=== PATIENT | female | born 1970 | race Caucasian/White ===

== ENCOUNTER 2019-08-05 06:25 | Day surgery (SDC) | payer BC, OTHER ==
[~2019-08-05] VITALS: Ht 162.6 cm; Wt 68.0 kg
[~2019-08-05 06:25] MED LIST: ESTRACE0.5 MG PO; MOBIC15 MG PO; OMEPRAZOLE20 MG PO; [UNRECOGNIZED DRUG - OTHER] IM
[2019-08-05] MEDS ORDERED: TRAZODONE HCL50 MG PO (06:46)
--- NOTE | 2019-08-05 08:13 | NUR ---
08/05/19 0813 Jessica Younger 0807- PT TO PACU IN LL POSITION. EYES OPEN. NODS AND STATES YES/NO APPROPRIATELY. BREATHING EASY AND UNLABORED ON 2 L O2 VIA NC. SP02 >95%. DENIES PAIN OR NAUSEA. PT ENCOURAGED TO PASS GAS. 0813- PT CONTINUES TO DENY PAIN/NAUSEA. BREATHING EASY AND UNLABORED. SP02 >90% ON RA. AWAKENS EASILY TO VOICE, BUT REMAINS DROWSY.
--- NOTE | 2019-08-05 09:49 | OR ---
[facility] [address] [place], [place] [address] Signed DATE OF OPERATION: 08/05/2019 SURGEON: Reena Cochran MD PREOPERATIVE DIAGNOSIS: Colon screening. POSTOPERATIVE DIAGNOSIS: Normal colon to cecum except for internal hemorrhoids. PROCEDURE: Total colonoscopy to cecum. ANESTHESIA: Intravenous sedation, fentanyl 100 mcg, Versed 4.5 mg. INDICATION: This 49-year-old white woman is a patient of [facility]. She is here for a screening colonoscopy. She has no family history of colon cancer and no symptoms. FINDINGS: The prep was excellent. Complete colonoscopy was undertaken to the cecum without question. She had no sign of polyps, diverticular formation, colitis, or cancer. There were internal hemorrhoids. DESCRIPTION OF PROCEDURE: The patient was brought to the endoscopy suite and placed in lateral decubitus position, given intravenous sedation to the point of slurred speech and nystagmus. Digital rectal examination was normal. An Olympus video colonoscope was passed in the rectum and manipulated throughout the colon ultimately intubating the cecum itself. The ileocecal valve and appendiceal orifice were normal. Scope was withdrawn from that point and examination throughout showed no sign of abnormality; specifically, no polyps, diverticular formation, colitis, or cancer. Retroflexed view of the rectum confirmed internal hemorrhoids. The scope was removed and the patient was taken to recovery room in good condition. CONCLUDING DIAGNOSIS: Normal colon to cecum. Electronically Signed By: REENA COCHRAN MD 08/05/19 0949 PATIENT NAME: SHRUTHI FRENCH OPERATIVE REPORT DATE OF : 66 REPORT #: [id number] PHYSICIAN: REENA COCHRAN MD PCP: DAYANARA SCHUMACHER PA-C REPORT IS CONFIDENTIAL AND NOT TO BE RELEASED WITHOUT AUTHORIZATION [address] [place], [place] [address] Signed PLAN: Recommend repeat colonoscopy in 10 years sooner if clinically indicated. MD SHAHID Daniels/LIZZY /[id number] cc: DALTON Aponte Copies: DAYANNA JONES ~ Electronically Signed By: REENA COCHRAN MD 08/05/19 0949 PATIENT NAME: SHRUTHI FRENCH OPERATIVE REPORT DATE OF : 66 REPORT #: [id number] PHYSICIAN: REENA COCHRAN MD PCP: DAYANARA SCHUMACHER PA-C REPORT IS CONFIDENTIAL AND NOT TO BE RELEASED WITHOUT AUTHORIZATION
== END 2019-08-05 08:50 | disposition home or self-care (01) ==
LOC: DS 06:25 → OPS 06:25
PROVIDERS: Surgery
PROC: 0DJD8ZZ Inspection of Lower Intestinal Tract, Via Natural or Artificial Opening Endoscopic (ICD-10-PCS; principal; 2019-08-05 06:45)
DX: Z12.11 Encounter for screening for malignant neoplasm of colon (principal); K64.8 Other hemorrhoids; F17.210 Nicotine dependence, cigarettes, uncomplicated; J45.909 Unspecified asthma, uncomplicated; K21.0 Gastro-esophageal reflux disease with esophagitis; J68.3 Other acute and subacute respiratory conditions due to chemicals, gases, fumes and vapors; Z91.048 Other nonmedicinal substance allergy status; Z88.0 Allergy status to penicillin; Z91.040 Latex allergy status; Z79.899 Other long term (current) drug therapy; Z91.013 Allergy to seafood
CPT/HCPCS: 99153; G0500; J2250; J3010; J7121

== ENCOUNTER 2020-06-26 05:52 | Day surgery (SDC) | payer BC, OTHER ==
[~2020-06-26] VITALS: Ht 162.6 cm; Wt 72.7 kg
[~2020-06-26 05:52] MED LIST changes: +BLACK COHOSH40 M1 PO; +SUDOGEST30 MG PO; +TRAZODONE HCL50 MG PO; +VENTOLIN HFA18 GM INH
[2020-06-26] MEDS ORDERED: NORCO 5-325 TA1 EACH PO (10:19)
[2020-06-26] MEDS ORDERED: IBUPROFEN800 MG PO (10:20)
--- NOTE | 2020-06-26 12:41 | OR ---
[address] [address] Signed DATE OF OPERATION: 06/26/2020 SURGEON: Dion Renteria MD PREOPERATIVE DIAGNOSIS: Rectocele. POSTOPERATIVE DIAGNOSIS: Rectocele. PROCEDURE: Posterior repair. TELEMEDICINE PHYSICIAN: Dr. Whitman. ANESTHESIA: General. ESTIMATED BLOOD LOSS: 50 mL. SPECIMEN: None. DRAINS: Gibson to bladder. PACKING: None. FINDINGS: A lax introitus with a grade 2-3 rectocele, there was grade 1 cystocele. Normal cervix and uterus without descent. No lesions or masses noted. COMPLICATIONS: None. DESCRIPTION OF PROCEDURE: The patient was brought to the operating room, placed in supine position. After Electronically Signed By: DION RENTERIA MD 06/26/20 1241 PATIENT NAME: SHRUTHI FRENCH OPERATIVE REPORT DATE OF : 66 REPORT #: [id number] PHYSICIAN: DION RENTERIA MD PCP: AALIYAH BERRY PA-C REPORT IS CONFIDENTIAL AND NOT TO BE RELEASED WITHOUT AUTHORIZATION [address] [address] Signed adequate general anesthesia was obtained, she was placed in the dorsal lithotomy position, prepped and draped in usual sterile fashion. Digital rectal exam was done and the distal portion of the rectocele was identified and a Paulino clamp used to grasp the vaginal mucosa at distal portion in the midline of the vagina, grasping just the vaginal mucosa. Allis clamps were used to grasp either side of the introitus and a triangular shaped piece of perineal skin removed using a scalpel, the base being the introitus between the two Allis clamps in the apex 2/[address] in the midline toward the rectum. The vaginal mucosa was then undermined using Metzenbaum scissors and cut along the midline towards the previously placed clamp. The edges of the vaginal mucosa were grasped with Allis clamps on either side as the dissection was carried out. The vaginal mucosa was then bluntly and sharply from the perirectal tissue using open gauze and Metzenbaum scissors dissecting the perirectal tissue away from the underside of the vaginal mucosa. With both sides of the rectocele identified and from the vaginal mucosa, interrupted horizontal mattress stitches of 0 Vicryl suture were placed starting at the distal and proceeding towards the introitus. These stitches were closed, thickening perirectal tissue in the midline. After these stitches were placed, a digital rectal exam was done. There was still small area of rectocele towards the proximal end, this was reinforced with two additional horizontal mattress stitches of 0 Vicryl suture. With midline perirectal tissue strengthened, the vaginal mucosa was trimmed on either side and then a running locking stitch of 2-0 Vicryl suture used to close the vaginal mucosa. Before reaching the introitus, FloSeal was inserted into the space between the perirectal tissue and the vaginal mucosa. The vaginal mucosa was then finished closing out to the introitus and interrupted stitches of 0 Vicryl suture used to close and reinforce the perineal body. The 2-0 Vicryl stitch was then taken down the perineum through the superficial perineal body down to the apex and then back as a subcuticular stitch up to the introitus and tied in place, this closed the perineal body and vaginal mucosa. The vagina was inspected, noted to have good hemostasis, good closure and good support of the rectum. The perineal body showed good closure and the laxity of the introitus repaired. Additional digital rectal exam was done. No stitches or defects were noted in the rectum. The sphincter was also not involved. The patient tolerated the procedure well and went to the recovery room in good condition. The sponge, needle, and instrument count were correct at end of the procedure. Gibson catheter was left in place. Dion Renteria MD Electronically Signed By: DION RENTERIA MD 06/26/20 1241 PATIENT NAME: SHRUTHI FRENCH OPERATIVE REPORT DATE OF : 66 REPORT #: [id number] PHYSICIAN: DION RENTERIA MD PCP: AALIYAH BERRY PA-C REPORT IS CONFIDENTIAL AND NOT TO BE RELEASED WITHOUT AUTHORIZATION [address] [address] Signed CLARK/LIZZY /[id number] cc: Aaliyah Berry PA-C Copies: ~ Electronically Signed By: DION RENTERIA MD 06/26/20 1241 PATIENT NAME: SHRUTHI FRENCH OPERATIVE REPORT DATE OF : 66 REPORT #: [id number] PHYSICIAN: DION RENTERIA MD PCP: AALIYAH BERRY PA-C REPORT IS CONFIDENTIAL AND NOT TO BE RELEASED WITHOUT AUTHORIZATION
== END 2020-06-26 13:00 | disposition home or self-care (01) ==
LOC: DS 05:52
PROVIDERS: ATTEND General Practice
PROC: 0WQN0ZZ Repair Female Perineum, Open Approach (ICD-10-PCS; 2020-06-26)
PROC: 0JQC0ZZ Repair Pelvic Region Subcutaneous Tissue and Fascia, Open Approach (ICD-10-PCS; principal; 2020-06-26 06:45)
DX: N81.6 Rectocele (principal); N81.10 Cystocele, unspecified; J45.909 Unspecified asthma, uncomplicated; K21.9 Gastro-esophageal reflux disease without esophagitis; Z78.0 Asymptomatic menopausal state; Z87.891 Personal history of nicotine dependence; Z79.899 Other long term (current) drug therapy; Z88.0 Allergy status to penicillin
CPT/HCPCS: 00942; J0131; J1100; J1200; J2405; J2704; J3010; J3475; J7121

== ENCOUNTER 2024-04-29 17:49 | Emergency (ER) | payer OTHER ==
[~2024-04-29] VITALS: Ht 162.6 cm; Wt 65.1 kg
[~2024-04-29 17:49] MED LIST changes: +IBUPROFEN800 MG PO; +NORCO 5-325 TA1 EACH PO
[2024-04-29 18:13] LABS: BASOPHILS 0.5 % (0-2); EOSINOPHILS 5.8 % (0-6); HEMATOCRIT 36.7 % (35.0-50.0); HEMOGLOBIN 12.6 g/dL (12.0-18.0); LYMPHOCYTES 20.4 % (24-44); MCH 30.5 (27-36); MCHC 34.3 g/dl (30-36); MCV 88.8 fl (81-99); MONOCYTES 7.3 % (0-12); PLATELET COUNT 204 K/uL (140-440); RBC 4.14 M/ul (4.3-5.7); RDW 14.1 (10.5-15.0)
[2024-04-29 18:26] LABS: ALBUMIN 3.6 g/dL (3.4-5.0); ALBUMIN/GLOBULIN RATIO 1.13 (1.1-2.4); ALKALINE PHOSPHATASE 76 U/L (46-116); ALT (SGPT) 39 U/L (14-59); ANION GAP 12.6 (7-21); AST (SGOT) 27 U/L (15-37); BILIRUBIN, TOTAL 0.2 ng/dL (0.2-1.0); BUN/CREATININE RATIO 18.18 (6.0-28.6); CALCIUM 9.3 mg/dL (8.5-10.1); CARBON DIOXIDE 28 mmol/L (21-32); CHLORIDE 101 mmol/L (98-107); CREATININE, SERUM 0.88 mg/dL (0.55-1.02); GLOMERULAR FILTRATION RATE,EST 78 mL/min (>60); POTASSIUM 3.6 mmol/L (3.5-5.1); PROTEIN, TOTAL 6.8 g/dL (6.4-8.2); UREA NITROGEN 16 mg/dL (7-18)
[2024-04-29 19:38] VITALS: BP 136/83
--- NOTE | 2024-04-30 22:09 | EKG ---
[facility] [address] [facility] [place] [address] Signed Normal sinus rhythm Normal ECG No previous ECGs available Confirmed by Daina Dixon MD () on 04/30/2024 10:09:12 PM Electronically Signed By: DAINA DIXON MD 04/30/242208 PATIENT NAME: SHRUTHI FRENCH Electrocardiogram DATE OF : 66 PHYSICIAN: DAINA DIXON MD REPORT #: [id number] REPORT IS CONFIDENTIAL AND NOT TO BE RELEASED WITHOUT AUTHORIZATION
== END 2024-04-29 19:30 | disposition home or self-care (01) ==
LOC: ED 17:49
PROVIDERS: Emergency Medicine
DX: U07.1 COVID-19 (principal); Z87.891 Personal history of nicotine dependence; Z91.040 Latex allergy status; Z88.0 Allergy status to penicillin; Z91.048 Other nonmedicinal substance allergy status; Z91.018 Allergy to other foods; Z79.899 Other long term (current) drug therapy
CPT/HCPCS: 36415; 80053; 84484; 85025; 93005; 93010; 99283; U0002